=== PATIENT | male | born 1965 | race Caucasian/White ===

== ENCOUNTER 2018-01-04 16:00 | Emergency (ER) | payer MEDICAID, SELFPAY ==
[2018-01-04 17:27] VITALS: BP 139/92; PULSE 89; RESP 18; TEMP 36.9; O2SAT 95; BMI 29.8
[2018-01-04 18:24] LABS: Basophils % 0.3 % (0.1-2.0); Eosinophils # 0.3 K/mm3 (0.0-0.4); Eosinophils % 2.4 % (0.1-12.0); Hematocrit 44.7 % (42.0-52.0); Hemoglobin 15.1 g/dL (14.1-18.0); Lymphocytes # 1.5 K/mm3 (0.7-4.5); Lymphocytes % 13.7 K/mm3 (10-50); Mean Corpuscular HGB Conc 33.7 g/dL (31.8-35.4); Mean Corpuscular Hemoglobin 31.6 pg (27.0-31.2); Mean Corpuscular Volume 93.8 fl (80-94); Mean Platelet Volume 7.2 fl (7.4-10.4); Monocytes # 0.9 K/mm3 (0.1-1.0); Monocytes % 8.3 % (1.7-9.3); Neutrophils # 8.4 K/mm3 (1.8-7.8); Neutrophils % 75.4 % (37.0-80.0); Platelet Count 265 K/mm3 (142-424); Red Blood Count 4.77 M/mm3 (4.60-6.20); Red Cell Distribution Width 13.6 % (11.5-17.5); White Blood Count 11.1 K/mm3 (4.8-10.8)
[2018-01-04 18:34] LABS: Alanine Aminotransferase 70 U/L (12-78); Albumin/Globulin Ratio 0.5 (1.1-1.8); Alkaline Phosphatase 84 U/L (46-116); Anion Gap 12.8 mEq/L (5-15); Aspartate Amino Transferase 35 U/L (15-37); Bilirubin,Total 0.5 mg/dL (0.2-1.0); Blood Urea Nitrogen 14 mg/dL (7-18); Calcium 8.7 mg/dL (8.5-10.1); Carbon Dioxide 27 mmol/L (21.0-32.0); Chloride 100 mmol/L (98-107); Creatinine Clearance Estimated 131 mL/min (0-300); Estimated Glomerular Filt Rate 89 ml/min (>60); GFR (African American) 108 ML/MIN (>60); Globulin 5.5 gm/dl (1.3-3.2); Glucose 106 mg/dL (74-106); Potassium 3.8 mmoL/L (3.5-5.1); Sodium 136 mmol/L (136-145); Total Protein,Serum 8.5 gm/dL (6.4-8.2)
[2018-01-04 18:43] LABS: D-Dimer 126 (0-400)
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
--- NOTE | 2018-01-04 19:25 | ED_ITS ---
ED Disposition Clinical Impression: Almaguer's cyst, ruptured, Disuse atrophy of muscle, Spinal cord injury Disposition: Home, Self-Care Condition on Discharge: Good Additional Instructions: 1- rest. 2- ice 3- elevation of the affected limb. 4- daily aspirin. 5- see Dr Rodriguez in AM . 6- return if needed. - Critical Care Critical Care Time: No Attestation: On 01/04/18, the high probability of a clinically significant, sudden or life threatening deterioration of the following system(s) required my full and direct attention, intervention and personal management. The time I documented below is in addition to time spent performing reported procedures but includes the following listed in this critical care notation. Medical Decision Making - Medical Records Medical records reviewed: Yes: I reviewed the patient's medical records. Vital Signs: 01/04/18 17:27 Temperature 98.5 F Temperature Source Oral Pulse Rate [Right Brachial] 89 Respiratory Rate 18 Blood Pressure [Right Arm] 139/92 Blood Pressure Mean [Right Arm] 107 Blood Pressure Source [Right Arm] Automatic Cuff Blood Pressure Position [Right Arm] Sitting 02 Sat by Pulse Oximetry 95 Oxygen Delivery Method Room Air - Lab Data Lab results reviewed: Yes: I reviewed the patient's lab results. Lab Results 01/04/18 18:10: WBC 11.1 H, RBC 4.77, Hgb 15.1, Hct 44.7, MCV 93.8, MCH 31.6 H, MCHC 33.7, RDW 13.6, Plt Count 265, MPV 7.2 L, Neut % (Auto) 75.4, Lymph % (Auto ) 13.7, [place] % (Auto) 8.3, Eos % (Auto) 2.4, Baso % (Auto) 0.3, Neut # (Auto) 8.4 H, Lymph # (Auto) 1.5, [place] # (Auto) 0.9, Eos # (Auto) 0.3, Baso # (Auto) 0.0 01/04/18 18:10: D-Dimer 126 01/04/18 18:10: Sodium 136, Potassium 3.8, Chloride 100, Carbon Dioxide 27, Anion Gap 12.8, BUN 14, Creatinine 0.90, Estimated Creat Clear 131, Estimated GFR 89, Est GFR ( Amer) 108, Glucose 106, Calcium 8.7, Total Bilirubin 0.5, AST 35, ALT 70, Alkaline Phosphatase 84, Total Protein 8.5 H, Albumin 3.0 L , Globulin 5.5 H, Albumin/Globulin Ratio 0.5 L Result diagrams: 01/04/18 18:10 01/04/18 18:10 - Jose Inquiry Pt receiving controlled substance: No Jose was queried for this patient: No Medical Decision Making Narrative: I spoke with Mr. Jimenez about his normal labs. White count and no is normal which does not suggest infection. His d-dimer was extremely low and is highly specific for negative DVT. It is as accurate a negative ultrasound study. We discussed the need for follow-up with orthopedic and symptomatic treatment for the time being. He verbalized understanding. I called Dr. Rodriguez who welcomed him calling in the morning to obtain it time for a clinic visit. General Adult HPI - General Chief complaint: PAIN Stated complaint: pain,burning and swelling rt leg Mode of Arrival: Ambulatory Source of Information: Patient Limitations: No Limitations Description of Symptoms (Recalled from ER Triage Doc. by RN): pt states around 2200 last night he started having some pain, burning and swelling in his rle - History of Present Illness HPI narrative: 52 years old white male with history of spinal cord and status post right knee replacement. He had a history of right knee Almaguer's cyst. Yesterday at 10 PM. He developed sudden onset of pain and swelling of the right. He has left lower extremity atrophy and and he depends on his right lower extremity for mobility. H
[2018-01-04 19:40] VITALS: BP 129/83; PULSE 88; RESP 16; TEMP 36.9; O2SAT 97
== END 2018-01-04 19:41 | disposition home or self-care (01) ==
PROVIDERS: Emergency Provider Emergency Medicine; Family Provider Emergency Medicine
DX: M71.21 Synovial cyst of popliteal space [Baker], right knee (principal); M62.50 Muscle wasting and atrophy, not elsewhere classified, unspecified site; Z96.651 Presence of right artificial knee joint; F17.210 Nicotine dependence, cigarettes, uncomplicated
CPT/HCPCS: 80053; 85025; 85378; 99282; 99283

== ENCOUNTER → 2018-12-21 14:05 | Outpatient (CLI) | payer MEDICAID, SELFPAY ==
[2018-12-21 16:29] LABS: Amphetamine/Metha Screen,Urine Negative ng/mL (<1000); Barbiturates Screen,Urine Negative ng/mL (<200); Benzodiazepines Screen,Urine Positive ng/mL (<200); Cannabinoid Screen,Urine Positive ng/mL (<50); Cocaine Screen,Urine Negative ng/mL (<300); Methadone Screen,Urine Negative ng/mL (<300); Opiate Screen,Urine Negative ng/mL (<300); Phencyclidine Screen,Urine Negative ng/mL (<25)
== END ==
PROVIDERS: Visit Provider Physician Assistant
DX: Z79.899 Other long term (current) drug therapy (principal)
CPT/HCPCS: 80305